=== PATIENT | male | born 1980 | race Caucasian/White ===

== ENCOUNTER 2021-09-01 14:09 | Emergency (ER) | payer BC, SELFPAY ==
--- NOTE | ~2021-09-01 | XR_ITS ---
XR hand RT min 3V 09/01/2021 14:29 Indication: Right hand pain Procedure: 3 views right hand Comparison: No prior studies for comparison. Findings: There is a healed fifth metacarpal fracture. No acute fracture, subluxation or dislocation. Carpal bones intact. Mild soft tissue swelling. Impression: 1: No acute fracture. Reviewed, dictated and finalized at location A. Impression: 1: No acute fracture.
[2021-09-01 14:11] VITALS: BP 127/85; PULSE 96; RESP 16; TEMP 36.3; O2SAT 96
--- NOTE | 2021-09-01 14:50 | ED_ITS ---
HPI - Extremity Injury (Upper) General Chief Complaint: Extremity Injury, Upper Stated Complaint: hand injury Time Seen by Provider: 09/01/21 14:22 History of Present Illness HPI narrative: 40-year-old male who states that he punched a wall while he last night because he was angry, he is endorsing pain and swelling in his right hand, no numbness or weakness, he is able to move the hand but it hurts, he did use some ice on it and took ibuprofen earlier with some relief. Related Data Allergies Allergy/AdvReac Type Severity Reaction Status Date / Time codeine AdvReac Unknown N/V Verified 09/01/21 14:15 Review of Systems Review of Systems: M/S: Hand pain SKIN: Swelling of right hand NEURO: [No focal numbness or weakness] [facility] Past Medical History Medical History (Updated 09/01/21 @ 14:52 by Maria E Cavanaugh MD) Hand fracture, right Social History Social History (Updated 09/01/21 @ 14:52 by Maria E Cavanaugh MD) Alcohol intake: current Exam Narrative: EXAMINATION OF ORGAN SYSTEMS/BODY AREAS: Constitutional: Vital signs per nursing GENERAL:[No acute distress, non-toxic appearing.] HEAD: Normal with no signs of head trauma. EYES: EOMI, conjunctiva normal ENT: Hearing grossly intact LUNGS: Nonlabored breathing. HEART: [Regular rate and rhythm] EXT: Normal range of motion of the right hand, neurovascularly intact, no obvious deformity but swelling and tenderness to the dorsal right hand SKIN: Swelling to the dorsal aspect of the right hand NEURO: [Alert and oriented x 3. No gross focal sensory or strength deficits.] PSYCH: Normal affect Course Vital Signs Vital signs: Vital Signs Temperature 97.4 F L 09/01/21 14:11 Pulse Rate 96 09/01/21 14:11 Respiratory Rate 16 09/01/21 14:11 Blood Pressure 127/85 09/01/21 14:11 Pulse Oximetry 96 09/01/21 14:11 Oxygen Delivery Room Air 09/01/21 14:11 Temperature 97.4 F L 09/01/21 14:11 Pulse Rate 96 09/01/21 14:11 Respiratory Rate 16 09/01/21 14:11 Blood Pressure 127/85 09/01/21 14:11 Pulse Oximetry 96 09/01/21 14:11 Oxygen Delivery Room Air 09/01/21 14:11 MDM - Extremity Injury (Upper) MDM Narrative Medical decision making narrative: 40-year-old male presenting with swelling in his right hand after punching a wall, concern is for fracture versus contusion, x-rays negative, he is reassured and hand is iced and wrapped, return precautions provided and to follow-up with primary care doctor. Discharge Plan Discharge Patient Disposition: Home, Self-Care Condition: Stable Instructions: Antibiotic Form Follow-up/Referrals: Claudia,Gustavo Ayala MD [Primary Care Provider] -
== END 2021-09-01 15:11 | disposition home or self-care (01) ==
PROVIDERS: Emergency Provider Emergency Medicine; PCP Internal Medicine
DX: S60.221A Contusion of right hand, initial encounter (principal); W22.09XA Striking against other stationary object, initial encounter
CPT/HCPCS: 73130; 99283